=== PATIENT | female | born 1960 | race Caucasian/White ===

== ENCOUNTER 2017-05-10 10:25 | Emergency (ER) | payer MEDICAID ==
[2017-05-10 10:45] VITALS: BP 139/79
[2017-05-10] MEDS ORDERED: Bacitracin Oint 1 GM U/D Packet TOP ONE (11:13)
[2017-05-10] MEDS ORDERED: Ketorolac 60 MG/2 ML SDV IM ONE (11:20)
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
== END 2017-05-10 11:52 | disposition home or self-care (01) ==
LOC: JP.ED 10:25
DX: T24.211A Burn of second degree of right thigh, initial encounter (principal); T26.01XA Burn of right eyelid and periocular area, initial encounter; T21.11XA Burn of first degree of chest wall, initial encounter; T21.12XA Burn of first degree of abdominal wall, initial encounter; T25.121A Burn of first degree of right foot, initial encounter; Z88.1 Allergy status to other antibiotic agents; Z88.5 Allergy status to narcotic agent; Z88.2 Allergy status to sulfonamides; Z90.710 Acquired absence of both cervix and uterus; Z98.890 Other specified postprocedural states; X10.0XXA Contact with hot drinks, initial encounter
CPT/HCPCS: 99283; J1885

== ENCOUNTER 2019-09-06 06:41 | Emergency (ER) | payer MEDICARE, MEDICAID ==
[2019-09-06] MEDS ORDERED: Ketorolac 30 MG/ML SDV IVPUSH ONE (07:34)
[2019-09-06] MEDS ORDERED: HYDROmorphone 0.5 MG/0.5 ML Syringe IVPUSH ONE (07:34)
[2019-09-06] MEDS ORDERED: Ondansetron 4 MG/2 ML SDV IVPUSH ONE (07:34)
[2019-09-06] MEDS ORDERED: Lactated Ringers 1,000 ML IV ONE (07:35)
[2019-09-06 08:11] VITALS: BP 147/85; PULSE 66
--- NOTE | 2019-09-06 08:11 | EDM.PDOC ---
ED HPI GENERAL MEDICAL PROBLEM - General Chief Complaint: Genitourinary Problem Stated Complaint: ABD PAIN Time Seen by Provider: 09/06/19 07:20 Source of Information: Reports: Patient History Limitations: Reports: No Limitations - History of Present Illness INITIAL COMMENTS - FREE TEXT/NARRATIVE: This is a 59-year-old woman who presents with concerns of left-sided flank pain. She reports some intermittent back pain for several days, but is primarily here because of severe pain in the left flank that started abruptly at 4 AM this morning. The pain is sharp. It radiates around the left side of her groin from her left flank. She has some associated urinary urgency. No history of similar pain in the past. No fevers or chills. No hematuria. Is having some nausea, no vomiting. No prior history of renal stones, never had abdominal imaging. She does report history of frequent UTI. Left Lower Back Pain Score (Numeric/FACES): 10 - Related Data Allergies Allergy/AdvReac Type Severity Reaction Status Date / Time acetaminophen [From Percocet] Allergy Severe Anaphylactic Verified 09/06/19 06: 55 Shock oxycodone [From Percocet] Allergy Severe Anaphylactic Verified 09/06/19 06:55 Shock azithromycin Allergy Liver Verified 09/06/19 06:55 Problems Sulfa (Sulfonamide Allergy Swelling Verified 09/06/19 06:55 Antibiotics) Home Meds: Home Meds Estradiol 0.5 mg PO DAILY 05/10/17 [History] DULoxetine [Cymbalta] 30 mg PO BID 06/22/19 [History] Ibuprofen 200 mg PO DAILY PRN 06/22/19 [History] Multivitamin with Minerals [Multiple Vitamin] 1 tab PO DAILY 06/22/19 [History] Pantoprazole Sodium [Protonix] 40 mg PO DAILY 06/22/19 [History] Vitamin B Complex 1 each PO DAILY 06/22/19 [History] Calcium Carbonate [Calcium] 600 mg PO DAILY 08/22/19 [History] Gabapentin [Neurontin] 300 mg PO BEDTIME 08/22/19 [History] Ondansetron [Zofran ODT] 4 mg PO Q6H PRN #8 tab.dis 09/06/19 [Rx] oxyCODONE 5 mg PO Q4H PRN #6 tab 09/06/19 [Rx] Past Medical History HEENT History: Reports: Impaired Vision Gastrointestinal History: Reports: Cholelithiasis, GERD Genitourinary History: Reports: Other (See Below) 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: Musculoskeletal History: Reports: Arthritis, Fibromyalgia Neurological History: Reports: Other (See Below) Psychiatric History: Reports: Anxiety Endocrine/Metabolic History: Reports: Obesity/BMI 30+ Hematologic History: Reports: Anemia, Iron Deficiency - Past Surgical History Head Surgeries/Procedures: Reports: None HEENT Surgical History: Reports: Tonsillectomy GI Surgical History: Reports: Bariatric Procedure, Cholecystectomy, Colonoscopy , EGD Female Surgical History: Reports: Section, Hysterectomy Endocrine Surgical History: Reports: None Neurological Surgical History: Reports: None Musculoskeletal Surgical History: Reports: Other (See Below) Other Musculoskeletal Surgeries/Procedures:: left hand Dermatological Surgical History: Reports: None Social & Family History - Tobacco Use Smoking Status *Q: Never Smoker Second Hand Smoke Exposure: No - Caffeine Use Caffeine Use: Reports: Coffee, Soda - Recreational Drug Use Recreational Drug Use: No ED ROS GENERAL - Review of Systems Review Of Systems: See Below Constitutional: Reports: No Symptoms. Denies: Fever, Chills HEENT: Reports: No Symptoms Respiratory: Reports: No Symptoms Cardiovascular: Reports: No Symptoms Endocrine: Reports: No Symptoms GI/Abdominal: Reports: No Symptoms : Reports: Flank Pain, Urgency Musculoskeletal: Reports: No Symptoms Skin: Reports: No Symptoms Neurological: Reports: No Symptoms Psychiatric: Reports: No Symptoms Hematologic/Lymphatic: Reports: No Symptoms Immunologic: Reports: No Symptoms ED EXAM, RENAL/ - Physical Exam Exam: See Below Exam Limited By: No Limitations General Appearance: Alert, Mild Distress Ears: Normal External Exam Nose: Normal Inspection Throat/Mouth: Normal Inspection Head: Atraumatic, Normocephalic Neck: Normal Inspection Respiratory/Chest: Lungs Clear Cardiovascular: Regular Rate, Rhythm GI/Abdominal: Soft, Other (left flank tenderness, otherwise benign) Back Exam: CVA Tenderness (L) Extremities: Normal Inspection Neurological: Alert, Oriented Psychiatric: Normal Affect, Normal Mood Skin Exam: Warm, Dry Course - Vital Signs Last Recorded V/S: Last Vital Signs Temp 34.4 C L 09/06/19 06:58 Pulse 66 09/06/19 07:55 Resp 16 09/06/19 07:55 BP 147/85 H 09/06/19 07:55 Pulse Ox 95 09/06/19 07:55 - Orders/Labs/Meds Labs: Laboratory Tests 09/06/19 09/06/19 09/06/19 Range/Units 07:23 07:40 07:40 WBC 14.6 H (4.5-11.0) K/uL RBC 4.71 (3.30-5.50) M/uL Hgb 14.6 (12.0-15.0) g/dL Hct 45.8 (36.0-48.0) % MCV 97 (80-98) fL MCH 31 (27-31) pg MCHC 32 (32-36) % Plt Count 306 (150-400) K/uL Sodium 138 L (140-148) mmol/L Potassium 4.0 (3.6-5.2) mmol/L Chloride 101 (100-108) mmol/L Carbon Dioxide 28 (21-32) mmol/L Anion Gap 13.0 (5.0-14.0) mmol/L BUN 17 (7-18) mg/dL Creatinine 1.0 (0.6-1.0) mg/dL Est Cr Clr Drug Dosing 43.51 mL/min Estimated GFR (MDRD) 57 L (>60) Glucose 121 H (74-106) mg/dL Calcium 9.2 (8.5-10.1) mg/dL Urine Color Yellow (YELLOW) Urine Appearance Clear (CLEAR) Urine pH 5.5 (5.0-8.0) Ur Specific [place] >= 1.030 (1.008-1.030) Urine Protein Negative (NEGATIVE) mg/dL Urine Glucose (UA) Negative (NEGATIVE) mg/dL Urine Ketones Negative (NEGATIVE) mg/dL Urine Occult Blood Large H (NEGATIVE) Urine Nitrite Negative (NEGATIVE) Urine Bilirubin Negative (NEGATIVE) Urine Urobilinogen 0.2 (0.2-1.0) EU/dL Ur Leukocyte Esterase Negative (NEGATIVE) Urine RBC 10-20 H (0-5) Urine WBC 0-5 (0-5) Ur Epithelial Cells Many Amorphous Sediment Many Urine Bacteria Not seen Urine Mucus Not seen Meds: Medications Discontinued Medications Generic Name Dose Route Start Last Admin Trade Name Freq PRN Reason Stop Dose Admin Hydromorphone HCl 0.5 mg 09/06/19 07:34 09/06/19 07:51 Dilaudid IVPUSH 09/06/19 07:35 0.5 mg ONETIME ONE Administration Lactated Ringer's 1,000 mls @ 1,000 mls/hr 09/06/19 07:35 09/06/19 07:54 Ringers, Lactated IV 09/06/19 08:34 1,000 mls/hr BOLUS ONE Administration Ketorolac Tromethamine 15 mg 09/06/19 07:34 09/06/19 07:52 Toradol IVPUSH 09/06/19 07:35 15 mg ONETIME ONE Administration Ondansetron HCl 4 mg 09/06/19 07:34 09/06/19 07:50 Zofran IVPUSH 09/06/19 07:35 4 mg ONETIME ONE Administration - Re-Assessments/Exams Free Text/Narrative Re-Assessment/Exam: This is a 59-year-old female presents to the ED with left-sided flank pain. On exam she is found that normal vitals, does have left flank tenderness and appears uncomfortable. Most concerning for likely left-sided renal stone, she did have some insidious symptoms in the preceding days or perhaps diverticulitis or possible MSK back pain. We're doing workup was basic labs, UA, and a scan of abdomen and pelvis. Provided pain relief with IV Toradol and Dilaudid as well as Zofran and IV fluids. 09/06/19 08:09 Free Text/Narrative Re-Assessment/Exam: Labs with hematuria, no signs of infection. Otherwise generally unremarkable. CT shows 4.4 mm left sided stone in distal ureter. Pain well controlled. Appropriate for outpatient management. Will provide #6 oxycodone, zofran, instruction for apap and strainer use with PCP follow-up 09/06/19 08:48 Departure - Departure Time of Disposition: 08:50 Disposition: Home, Self-Care 01 Clinical Impression: Renal stone - Discharge Information Prescriptions: Ondansetron [Zofran ODT] 4 mg PO Q6H PRN #8 tab.dis PRN Reason: Nausea oxyCODONE 5 mg PO Q4H PRN #6 tab PRN Reason: Pain Instructions: Renal Colic, [id number], Kidney Stones, [id number] Referrals: PCP,None [Primary Care Provider] - Forms: ED Department Discharge Additional Instructions: You have a left sided kidney stone. Please take tylenol and the prescribed pain medication as needed Strain your urine so you can catch the stone if possible. You should make a follow up appointment with your primary doctor Return to the ER for unmanageable pain or if you are still having symptoms in a couple days or if you develop fevers. Sepsis Event Note - Evaluation Sepsis Screening Result: No Definite Risk - Focused Exam Vital Signs: Vital Signs Temp Pulse Resp BP Pulse Ox 09/06/19 07:55 66 16 147/85 H 95 09/06/19 06:58 34.4 C L 67 16 123/79 96 Date Exam was Performed: 09/06/19 Time Exam was Performed: 08:48
--- NOTE | 2019-09-06 08:33 | CRLCT ---
Indication: Left flank pain Technique: A CT volumetric acquisition was performed of the abdomen and pelvis without IV contrast. Comparison: None available Findings: The lung bases are clear. The unenhanced liver and spleen appear normal. There are no inflammatory changes noted about the gastric bypass surgical site. The gallbladder has been resected. The bile ducts are normal in size. There is no evidence of inflammation within the pancreas. The adrenal glands have normal morphology. The right kidney appears normal. There is edema and hydronephrosis within the left kidney. The dilated left ureter can be followed into the pelvis where there is an obstructing 4.4 mm calculus within the distal ureter seen on axial image 174. This lies 1 cm from the bladder junction. There is no evidence of retroperitoneal lymphadenopathy. The appendix appears normal. There is normal appearance of the small intestine and colon. The patient is status post hysterectomy. Urinary bladder is contracted. Impression: Obstructing 4.4 mm calculus is noted within the distal left ureter. Dictated by Herber Van MD @ 09/06/2019 8:32:54 AM Please note that all CT scans at this facility use dose modulation, iterative reconstruction, and/or weight-based dosing when appropriate to reduce radiation dose to as low as reasonably achievable. Dictated by: Herber Van MD @ 09/06/2019 08:32:59 (Electronically Signed)
== END 2019-09-06 09:00 | disposition home or self-care (01) ==
LOC: JP.ED 06:41
DX: N13.2 Hydronephrosis with renal and ureteral calculous obstruction (principal); K21.9 Gastro-esophageal reflux disease without esophagitis; F41.9 Anxiety disorder, unspecified; M19.90 Unspecified osteoarthritis, unspecified site; E66.9 Obesity, unspecified; Z68.32 Body mass index [BMI] 32.0-32.9, adult; Z88.8 Allergy status to other drugs, medicaments and biological substances; Z88.1 Allergy status to other antibiotic agents; Z88.2 Allergy status to sulfonamides; Z88.5 Allergy status to narcotic agent; Z79.899 Other long term (current) drug therapy
CPT/HCPCS: 36415; 74176; 80048; 81001; 85027; 96361; 96374; 96375; 99284; J1170; J1885; J2405; J7120; 99283

== ENCOUNTER 2024-01-21 08:42 | Day surgery (SDC) | payer MEDICARE, MEDICAID ==
[2024-01-21] MEDS: Sodium Chloride 0.9% 1,000 ML IV SCH (09:41)
[2024-01-21] MEDS ORDERED: fentaNYL 50 MCG/ML SDV ONE (09:44)
[2024-01-21] MEDS ORDERED: Midazolam 1 MG/ML 2 ML SDV ONE (09:44)
[2024-01-21] MEDS ORDERED: Propofol 200 MG/20 ML SDV ONE (09:44)
[2024-01-21 11:41] VITALS: BP 122/73; PULSE 80
== END 2024-01-21 11:50 | disposition home or self-care (01) ==
LOC: MERGE 08:42 → JP.SDS 08:42
PROVIDERS: ATTEND Surgery
DX: K22.70 Barrett's esophagus without dysplasia (principal); R13.10 Dysphagia, unspecified; F32.A Depression, unspecified; Z98.84 Bariatric surgery status
CPT/HCPCS: 00731; 43239; 88305; J2250; J2704; J3010; J7030